=== PATIENT | female | born 1955 ===

== ENCOUNTER 2024-11-19 05:55 | Day surgery (SDC) | payer OTHER ==
[2024-11-13 13:05] VITALS: BP 114/69
[~2024-11-19] VITALS: Ht 170.2 cm; Wt 75.3 kg
[~2024-11-19 05:55] MED LIST: ACID CONTROLLER20 MG PO; COZAAR25 MG PO; LASIX20 MG PO; METFORMIN HCL1000 M2 PO
[2024-11-19] MEDS ORDERED: METRONIDAZOLE/SODIUM CHLORIDE 500 MG/100 ML PIGGYBACK IV ONE (08:27)
[2024-11-19] MEDS ORDERED: BUPIVACAINE HCL/MPF 0.5% 30ML VIAL ONE (09:16)
[2024-11-19] MEDS ORDERED: DIBUCAINE 30 GM TUBE ONE (09:16)
[2024-11-19] MEDS ORDERED: HEMOSTATIC MATRIX 1 KIT KIT TOP ONE (09:16)
[2024-11-19] MEDS ORDERED: POVIDONE-IODINE 118 ML BOTT TOP ONE (09:16)
[2024-11-19] MEDS ORDERED: LIDOCAINE HCL 1%/EPINEPHRINE 20ML VIAL IJ ONE (10:30)
[2024-11-19] MEDS ORDERED: levoFLOXacin IN DEXTROSE 5 % 500MG/100ML PIGGYBAG IV ONE (10:30)
[2024-11-19] MEDS ORDERED: levoFLOXacin IN DEXTROSE 5 % 250MG/50ML PIGGYBAG IV ONE (10:30)
[2024-11-19] MEDS ORDERED: TAMSULOSIN HCL 0.4 MG CAP PO ONE ×2 (10:45→13:16)
[2024-11-19] MEDS ORDERED: OXYCODONE HCL5 MG PO (10:56)
== END 2024-11-19 16:35 | disposition home or self-care (01) ==
LOC: CIR.AMB 05:55
PROVIDERS: ATTEND Surgery
DX: K64.2 Third degree hemorrhoids (principal); K64.4 Residual hemorrhoidal skin tags; K62.5 Hemorrhage of anus and rectum